=== PATIENT | male | born 1955 | race Caucasian/White ===

== ENCOUNTER 2017-10-15 21:27 | Emergency (ER) | payer BC ==
[2015-01-15 01:34] VITALS: BMI 28.4
[~2017-10-15 21:27] MED LIST: ALDACTONE25 MG PO; BAYER CHEWABLE81 MG PO; DEMADEX20 MG PO; ISOSORBIDE DINI10 MG PO; K-DUR20 MEQ PO; LANOXIN125 MCG PO; LEXAPRO5 MG PO; MAG-OX 400 MG400 MG PO; PLAVIX75 MG PO; TOPROL XL50 MG PO; ZYLOPRIM100 MG PO
== END 2017-10-16 00:45 | disposition home or self-care (01) ==
LOC: D.ER 21:27
DX: S42.101A Fracture of unspecified part of scapula, right shoulder, initial encounter for closed fracture (principal); Y93.H2 Activity, gardening and landscaping; Y92.017 Garden or yard in single-family (private) house as the place of occurrence of the external cause; I50.9 Heart failure, unspecified; I10 Essential (primary) hypertension; Z85.46 Personal history of malignant neoplasm of prostate

== ENCOUNTER → 2017-10-21 10:41 | Outpatient (CLI) | payer BC ==
[2015-01-15 01:34] VITALS: BMI 28.4
== END | disposition home or self-care (01) ==
LOC: D.CT 10:41
DX: S42.144A Nondisplaced fracture of glenoid cavity of scapula, right shoulder, initial encounter for closed fracture (principal)

== ENCOUNTER 2018-08-19 15:53 | Emergency (ER) | payer BC ==
[~2018-08-19] VITALS: Ht 172.7 cm; Wt 77.3 kg
[2018-08-19 16:13] VITALS: Ht 172.7 cm; Wt 77.3 kg
[2018-08-19] MEDS ORDERED: EPLERENONE25 MG PO (16:17)
[2018-08-19] MEDS ORDERED: [UNRECOGNIZED DRUG - OTHER] (16:17)
[2018-08-19] MEDS ORDERED: CRESTOR10 MG PO (16:18)
[2018-08-19] MEDS ORDERED: VIBRAMYCIN 100100 MG PO (17:05)
[2018-08-19 17:20] VITALS: BP 97/62
== END 2018-08-19 17:21 | disposition home or self-care (01) ==
LOC: D.ER 15:53
DX: L03.113 Cellulitis of right upper limb (principal)